=== PATIENT | male | born 2000 | race Caucasian/White ===

== ENCOUNTER 2023-11-07 11:57 | Emergency (ER) | payer OTHER, SELFPAY ==
[2023-11-07 12:00] VITALS: BP 104/59; PULSE 77; RESP 16; TEMP 36.6; O2SAT 98; BMI 23.0
--- NOTE | 2023-11-07 12:03 | DI.RAD.S_ITS ---
PROCEDURE: XR TIBIA FUBULA RT 2V INDICATIONS: injury/pain TECHNIQUE: 2 views of the tibia and fibula were acquired. COMPARISON: None. FINDINGS: Bones: No fractures or dislocations. No suspicious bony lesions. Soft tissues: No suspicious soft tissue calcifications or masses. IMPRESSION: No acute bony abnormality. If there is persistent clinical concern for occult fracture given adequate mechanism of injury, consider repeat imaging in 10-14 days. Immobilization as clinically indicated. Dictated by: Smith Rao M.D. on 11/07/2023 at 13:25 Approved by: Smith Rao M.D. on 11/07/2023 at 13:26
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
== END 2023-11-07 19:12 | disposition left against medical advice (07) ==
PROVIDERS: Emergency Provider Emergency Medicine
DX: M79.604 Pain in right leg (principal)
CPT/HCPCS: 73590; 99281

== ENCOUNTER → 2023-12-11 17:44 | Outpatient (ROUT) | payer OTHER, SELFPAY | PROVIDERS: Visit Provider Dermatology | DX: L57.8 Other skin changes due to chronic exposure to nonionizing radiation (principal); X32.XXXA Exposure to sunlight, initial encounter; L08.9 Local infection of the skin and subcutaneous tissue, unspecified; H60.02 Abscess of left external ear | CPT/HCPCS: 87070; 87147; 87205 ==